=== PATIENT | male | born 1985 | race African-American/Black ===

== ENCOUNTER 2017-05-18 07:00 | Emergency (ER) | payer OTHER ==
[~2017-05-18] VITALS: Ht 177.8 cm; Wt 88.9 kg
--- NOTE | ~2017-05-18 | EKG ---
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
[2017-05-18 07:21] LABS: HEMOGLOBIN 15.1 gm/dL (14.0-18.0); MCH 29.3 pg (26.0-34.0); MCHC 35.1 g/dL (28.0-37.0); MCV 83.4 fL (80.0-100.0); RBC 5.16 mil/uL (4.50-6.00); RDW 12.8 % (10.5-14.5); WBC 8.2 thou/uL (4.0-11.0)
[2017-05-18 07:30] LABS: ANION GAP 10 mmol/L (7-16); BUN 22 mg/dL (7-18); CALCIUM 9.3 mg/dL (8.5-10.1); CHLORIDE 105 mmol/L (98-107); CO2 25 mmol/L (21-32); CREATININE 1.2 mg/dL (0.7-1.3); GLUCOSE 111 mg/dL (74-106); POTASSIUM 3.4 mmol/L (3.5-5.1); SODIUM 140 mmol/L (136-145)
[2017-05-18 07:38] LABS: TROPONIN-I < 0.04 ng/mL (<0.04-0.07)
[2017-05-18 08:19] LABS: AMP/METHAMP Negative (Negative); BARBITURATES Negative (Negative); BENZODIAZEPINES Negative (Negative); COCAINE Negative (Negative); METHADONE Negative (Negative); OPIATES Negative (Negative); PCP Negative (Negative); THC Negative (Negative)
[2017-05-18 09:20] VITALS: BP 126/64
== END 2017-05-18 09:20 | disposition home or self-care (01) ==
LOC: ER 07:00
PROVIDERS: Emergency Medicine
DX: R55 Syncope and collapse (principal)